=== PATIENT | female | born 1990 | race Asian ===

== ENCOUNTER 2016-05-23 11:37 | Emergency (ER) | payer MEDICAID ==
[2016-05-23] MEDS ORDERED: MOTRIN PO ONE (14:55)
--- NOTE | 2016-05-23 14:56 | Emergency Department Report ---
ED Upper Extremity Inj HPI - General Chief Complaint: Extremity Injury, Upper Stated Complaint: FINGER INJURY Time Seen by Provider: 05/23/16 14:54 Source: patient Mode of arrival: Ambulatory Limitations: No Limitations - History of Present Illness Initial Comments: Patient reports she was pulling up her pants and felt a crack in her right index finger and right thumb. She complains of pain in the right hand MD Complaint: Injury to:: right, finger Onset/Timin -: hour(s) Other Extremity Injury: Hand: Right Other Injuries: none Handedness: right Place: other ([facility]) Severity scale (0 -10): 9 Improves With: rest Worsens With: movement of extremity Context: other (with dressing) Associated Symptoms: heard/felt popping sensat. denies: weakness, numbness, neck pain, suspects foreign body, nausea/vomiting Treatments Prior to Arrival: other (none) - Related Data Previous Rx's Medication Instructions Recorded Last Taken Type Ibuprofen [Motrin 800 MG tab] 800 mg PO Q8HR PRN #15 tablet 05/23/16 Unknown Rx Allergies Allergy/AdvReac Type Severity Reaction Status Date / Time No Known Allergies Allergy Unverified 05/23/16 16:27 ED Review of Systems ROS: Stated complaint: FINGER INJURY Other details as noted in HPI Constitutional: denies: chills, diaphoresis, fever, malaise, weakness Respiratory: denies: cough, orthopnea, shortness of breath, SOB with exertion, SOB at rest, stridor, wheezing Cardiovascular: denies: chest pain, palpitations, dyspnea on exertion, orthopnea , edema, syncope, paroxysmal nocturnal dyspnea Musculoskeletal: arthralgia (right index and right thumb). denies: back pain, joint swelling, myalgia Skin: denies: rash, lesions, change in color, change in hair/nails, pruritus Hematological/Lymphatic: denies: easy bleeding, easy bruising, swollen glands ED Past Medical Hx - Social History Smoking Status: Never Smoker Substance Use Type: None - Medications Home Medications: Home Medications Medication Instructions Recorded Confirmed Last Taken Type Ibuprofen [Motrin 800 MG tab] 800 mg PO Q8HR PRN #15 tablet 05/23/16 Unknown Rx ED Physical Exam - General Limitations: No Limitations General appearance: alert, in no apparent distress - ENT ENT exam: Present: normal exam, mucous membranes moist. Absent: mucous membranes dry - Respiratory Respiratory exam: Present: normal lung sounds bilaterally. Absent: respiratory distress, wheezes, rales, rhonchi, stridor, chest wall tenderness, accessory muscle use, decreased breath sounds, prolonged expiratory - Cardiovascular Cardiovascular Exam: Present: regular rate, normal rhythm, normal heart sounds. Absent: systolic murmur, diastolic murmur, rubs, gallop, clicks, JVD, S3, S4 - Expanded Upper Extremity Exam Right Forearm Wrist exam: Present: normal inspection, full ROM. Absent: tenderness, swelling, abrasion, laceration, ecchymosis, deformity, crepidus, dislocation, erythema, tenderness over anatomical snuff box, pain with axial thumb loading Hand Wrist exam: Present: normal inspection, full ROM, tenderness (with palpation to proximal right index finger and right thumb). Absent: swelling, abrasion, laceration, ecchymosis, deformity, crepidus, dislocation, erythema, amputation, nail avulsion, subungual hematoma Neuro motor exam: Present: wrist extension intact, thumb opposition intact, thumb IP flexion intact, thumb adduction intact, fingers 2-5 abduction intact Neurosensory exam: Present: 2-point discrimination, radial nerve intact, ulnar nerve intact, median nerve intact Vascular: Present: normal capillary refill, radial pulse (2+), brachial pulse (2 +), ulnar pulse (2+). Absent: vascular compromise, Pallo, pulse deficit radial art, pulse deficit ulnar art, pulse deficit brachial art - Neurological Exam Neurological exam: Present: alert, oriented X3, CN II-XII intact, normal gait, reflexes normal - Psychiatric Psychiatric exam: Present: normal affect, normal mood. Absent: depressed, agitated - Skin Skin exam: Present: warm, dry, intact, normal color. Absent: rash ED Course Vital Signs 05/23/16 05/23/16 05/23/16 12:21 16:27 16:30 Temperature 98.8 F Pulse Rate 61 65 Respiratory 16 18 18 Rate Blood Pressure 109/68 Blood Pressure 110/65 [Left] O2 Sat by Pulse 98 99 100 Oximetry - Reevaluation(s) Reevaluation #1: 05/23/16 18:35 analgesic and radiology study ordered ED Medical Decision Making - Lab Data Vital Signs 05/23/16 05/23/16 05/23/16 12:21 16:27 16:30 Temperature 98.8 F Pulse Rate 61 65 Respiratory 16 18 18 Rate Blood Pressure 109/68 Blood Pressure 110/65 [Left] O2 Sat by Pulse 98 99 100 Oximetry - Radiology Data Radiology results: image reviewed RIGHT HAND, 3 views: History: Right hand pain, thumb and index finger pain. The bony architecture is intact. Bony alignment is normal. No soft tissue abnormalities are seen. The joint spaces appear preserved. IMPRESSION: Right hand within normal limits. - Medical Decision Making During The course of ED, analgesics and radiology studies were ordered. Imaging study revealed right hand within normal limits. Patient reported symptomatic relief from medication given in the ED. She was sent home with wrist splint, a prescription for Ibuprofen, instructed to follow with selective referrals given at discharge, she verbalize understanding - Differential Diagnosis Right Hand Pain, Right Hand Fracture Critical care attestation.: If time is entered above; I have spent that time in minutes in the direct care of this critically ill patient, excluding procedure time. ED Disposition Clinical Impression: Strain of right index finger Disposition: DISCHARGED TO HOME OR SELFCARE Is pt being admited?: No Does the pt Need Aspirin: No Condition: Stable Instructions: Finger Sprain (ED) Additional Instructions: Take medication as directed. Wear wrist splint for comfort. Follow up with selective referral given at discharge Prescriptions: Ibuprofen [Motrin 800 MG tab] 800 mg PO Q8HR PRN #15 tablet PRN Reason: Pain Referrals: GISELA VIZCAINO DR [Other] - 3-5 Days RENITA JOHNSON MD [Staff Physician] - 3-5 Days Forms: Work/School Release Form(ED) Time of Disposition: 16:03
--- NOTE | 2016-05-23 15:20 | XRay Report ---
RIGHT HAND, 3 views: History: Right hand pain, thumb and index finger pain. The bony architecture is intact. Bony alignment is normal. No soft tissue abnormalities are seen. The joint spaces appear preserved. IMPRESSION: Right hand within normal limits.
[2016-05-23 16:31] VITALS: BP 110/65
== END 2016-05-23 16:31 | disposition home or self-care (01) ==
LOC: ED 11:37
DX: S63.610A Unspecified sprain of right index finger, initial encounter (principal); W20.8XXA Other cause of strike by thrown, projected or falling object, initial encounter; Y93.9 Activity, unspecified; Y92.9 Unspecified place or not applicable; Y99.9 Unspecified external cause status